=== PATIENT | female | born 1975 | race Caucasian/White ===

== ENCOUNTER 2018-02-27 09:04 | Outpatient (CLI) | payer BC ==
--- NOTE | 2018-02-27 10:23 | RAD ---
FOUR VIEWS LUMBAR SPINE: INDICATION: Lumbar spine pain with radiculopathy. COMPARISON: Prior exam dated 04/07/17. FINDINGS: There are 5 lumbar-type vertebrae. Spinal alignment is preserved. Vertebral body heights are within normal limits. There is mild left disk space height at L5-S1 which is stable. No abnormal translat ional motion is evident. IMPRESSION: 1. Stable mild spondylosis of the lumbar spine mainly at L5-S1. 2. No abnormal translational motion demonstrated. POS: CORDELIA
--- NOTE | 2018-02-27 12:16 | MRI ---
MRI LUMBAR SPINE: Date: 02/27/18 Multiplanar, multisequential imaging of lumbar spine obtained. INDICATION: Lumbar radiculopathy. Lumbar pain with radiation to right lower extremity. COMPARISON: MRI lumbar spine dated 04/07/17. That exam revealed a paracentral disc protrusion at L5-S1. FINDINGS: Lumbar vertebra maintain height and alignment. Degenerative disc and end plate signal change seen at L5-S1. There is mild loss of disc height and degenerative end plate changes, which are similar to the prior study of 2017. At L5-S1, there continues to be a disc protrusion paracentrally and to the left flattening anterior t hecal sac on the left and displacing the traversing left S1 nerve root. Disc protrusion does extend i nto the left foramina and also projects laterally to the left with disc osteophyte complex. This appe ars to contact the exiting left L5 nerve root. This protrusion may be minimally more prominent today with AP dimension measured at 8-9 mm today, whereas it previously measured 6-7 mm in the axial plane. The other levels remain unremarkable with no other significant disc bulge or disc protrusion seen in the lumbar spine. IMPRESSION: Disc protrusion paracentrally to the left and laterally to the left at L5-S1 again noted as described above. POS: CORDELIA
== END 2018-02-27 09:05 | disposition home or self-care (01) ==
LOC: TBSIIMAG 09:04
PROVIDERS: ATTEND Surgery
DX: M47.27 Other spondylosis with radiculopathy, lumbosacral region (principal)
CPT/HCPCS: 72100; 72148

== ENCOUNTER 2018-06-30 06:00 | Day surgery (SDC) | payer BC ==
[2018-06-29 10:40] VITALS: BMI 22.3
[2018-06-30] MEDS ORDERED: Thrombin 5000 UNITS/5 ML VIAL ONE (06:26)
[2018-06-30] MEDS ORDERED: Sodium Chloride 0.9% 10 ML ONE (06:26)
[2018-06-30] MEDS ORDERED: Bacitracin Zinc Ointment 30 gm TUBE ONE (06:26)
[2018-06-30] MEDS ORDERED: Midazolam HCl 2 mg/2 ml Vial ONE (06:58)
[2018-06-30] MEDS ORDERED: Scopolamine 1.5 mg/72 hour Patch ONE (07:04)
[2018-06-30] MEDS ORDERED: CEFAZOLIN 2 GM/50 ML BAG ONE (07:08)
[2018-06-30 07:14] LABS: #Basophils 0.1 thou/uL (0.0-0.2); #Eosinphils 0.1 thou/uL (0.0-0.7); #Lymphocytes 1.5 thou/uL (1.20-3.40); #Monocytes 0.4 thou/uL (0.11-0.59); #Neutrophils 3.1 thou/uL (1.40-6.50); %Basophils 1.4 % (0.0-1.0); %Lymphocytes 29.8 % (21.0-51.0); %Neutrophils 60.8 % (42.0-75.0); Hemoglobin 13.2 g/dL (12.0-16.0); Mean Corpuscular HGB CONC 32.2 g/dL (32.0-36.0); Mean Corpuscular Volume 90.2 fL (78.0-98.0); Mean Platelet Volume 8.2 fL (7.4-10.4); Platelet Count 194 thou/uL (130-400); RBC Distribution Width 11.6 % (11.5-14.5); Red Blood Cell (RBC) Count 4.53 mill/uL (4.20-5.40)
[2018-06-30 07:21] LABS: PTT 28.1 SEC (22.9-36.1)
[2018-06-30 07:33] LABS: Anion Gap 11 mmol/L (10-20); BUN (Urea Nitrogen) 12 mg/dL (7.0-18.7); Calc. Creatinine Clearance 90 mL/min (70-130); Calcium 9.1 mg/dL (7.8-10.44); Carbon Dioxide 24 mmol/L (22-29); Chloride 109 mmol/L (98-107); Estimated GFR-MDRD 85; Glucose 92 mg/dL (70-105); Potassium 3.7 mmol/L (3.5-5.1); Sodium 140 mmol/L (136-145)
[2018-06-30] MEDS ORDERED: Fentanyl 100 MCG/2 ML VIAL ONE ×2 (07:33→09:56)
[2018-06-30] MEDS ORDERED: Promethazine HCl 25 MG/ML VIAL SLOW IVP PRN (08:45)
[2018-06-30] MEDS ORDERED: Promethazine HCl 25 MG/ML VIAL IM PRN ×2 (08:45→09:33)
[2018-06-30] MEDS ORDERED: Morphine Sulfate 2 MG/ML SYRINGE SLOW IVP PRN (08:45)
[2018-06-30] MEDS ORDERED: PACU-Morphine 4MG/ML VIAL SLOW IVP PRN (08:45)
[2018-06-30] MEDS ORDERED: HYDROmorphone 2 MG/ML VIAL SLOW IVP PRN (08:45)
[2018-06-30] MEDS ORDERED: Promethazine HCl 25 MG/ML VIAL ONE (08:57)
[2018-06-30] MEDS ORDERED: traMADol HCl 50 MG TAB PO PRN (09:33)
[2018-06-30] MEDS ORDERED: Fleet Enema 133 ML BOT PR PRN (09:33)
[2018-06-30] MEDS ORDERED: Mag-Al 1200 mg/1200 mg/30 ML UDCUP PO PRN (09:33)
[2018-06-30] MEDS ORDERED: HYDROcodone/Acetaminophen 7.5/325 mg Tablet PO PRN (09:33)
[2018-06-30] MEDS ORDERED: Bisacodyl 10 MG SUPP PR PRN (09:33)
[2018-06-30] MEDS ORDERED: Milk Of Magnesia 30 ML UDCUP PO PRN (09:33)
[2018-06-30] MEDS ORDERED: Ketorolac Tromethamine 30 MG/ML VIAL ONE (10:18)
[2018-06-30] MEDS: Sodium Chloride 0.9% 1,000 ML IV SCH ×2 (12:05→19:03)
--- NOTE | 2018-06-30 12:40 | OP ---
DATE OF PROCEDURE: 06/30/2018 OR: OR #[id number] WOUND TYPE: Type 1 wound. SURGEON: Edu Dan M.D. TRAFFIC OPERATOR: Michael Alvarenga PA-C. PREPROCEDURE DIAGNOSES: Left S1 radiculopathy with left L5-S1 disk extrusion with low back and left leg pain. POSTPROCEDURE DIAGNOSES: Left S1 radiculopathy with left L5-S1 disk extrusion with low back and left leg pain. PROCEDURE: 1. Left L5-S1 hemilaminotomy, foraminotomy, and diskectomy. 2. Use of operative microscope for microdissection. DESCRIPTION OF PROCEDURE: After informed consent was obtained from the patient, the patient brought to OR 11. Proper patient pause identification was carried out. She was placed in excellent endotrac heal anesthesia and positioned prone on the OR table. All appropriate points were padded. We then identified L5-S1 dorsal spines. A linear luis was made over this region. This area sterilel y cleansed, prepared, and draped. Proper patient pause identification was carried out. The wound wa s then opened with a combination of sharp, monopolar and blunt dissection, left L5-S1 hemilamina was exposed. Localization film confirmed our area of interest. We then performed with the microscope an d utilizing micro dissection technique, left L5-S1 hemilaminotomy, foraminotomy. We gently retracted the left S1 nerve root and diskectomy at the left L5-S1 segment was performed with excellent decompr ession of the traversing left S1 nerve root. Copious irrigation occurred throughout. There was no s luis miguel fluid leak. Hemostasis was maximized. The wound was then closed in anatomic layers following the sprinkling of vancomycin powder. The patient then emerged from anesthesia.
[2018-06-30] MEDS ORDERED: Ibuprofen 200 MG TAB PO PRN (12:54)
--- NOTE | 2018-06-30 13:00 | EKG ---
Test Reason : PREOP Blood Pressure : / mmHG Vent. Rate : 065 BPM Atrial Rate : 065 BPM P-R Int : 120 ms QRS Dur : 080 ms QT Int : 444 ms P-R-T Axes : 066 063 059 degrees QTc Int : 461 ms Normal sinus rhythm Normal ECG No previous ECGs available Confirmed by BLANCHE NY ([id number]) on 06/30/2018 1:00:13 PM Referred By: MILY Confirmed By:BLANCHE [place]
[2018-06-30] MEDS: Acetaminophen 325 MG TAB PO PRN ×3 (14:26→23:17)
[2018-06-30] MEDS: CEFAZOLIN 2 GM/50 ML BAG IVPB SCH ×2 (16:00→23:35)
[2018-06-30] MEDS ORDERED: PROPOFOL 200 MG/20 ML VIAL ONE (17:43)
[2018-06-30] MEDS ORDERED: PHENYLEPHRINE-NS 100 MCG/ML 10 ML SYRINGE ONE (17:43)
[2018-06-30] MEDS ORDERED: Lidocaine 1% PF 5 ML VIAL ONE (17:43)
[2018-06-30] MEDS ORDERED: Glycopyrrolate 0.2 MG/ML 5 ML SYRINGE ONE (17:43)
[2018-07-01] MEDS: Acetaminophen 325 MG TAB PO PRN ×2 (03:50→08:00)
[2018-07-01 07:54] VITALS: BP 107/57; TEMP 98.2
--- NOTE | 2018-07-01 09:33 | PRG ---
DATE OF SERVICE: 07/01/2018 She is postoperative day 1 from left L5-S1 discectomy. She is doing well with resolution in her left leg pain. She has had no cardiac issues. We will dismiss her. Neurologically is intact.
[2018-07-01] MEDS: Sodium Chloride 0.9% 1,000 ML IV SCH (09:50)
--- NOTE | 2018-07-01 10:15 | EKG ---
Test Reason : Blood Pressure : / mmHG Vent. Rate : 060 BPM Atrial Rate : 060 BPM P-R Int : 122 ms QRS Dur : 072 ms QT Int : 462 ms P-R-T Axes : 071 057 059 degrees QTc Int : 462 ms Normal sinus rhythm Nonspecific ST and T wave abnormality Prolonged QT Abnormal ECG Confirmed by BLANCHE NY ([id number]) on 07/01/2018 10:14:30 AM Referred By: SHABANA BURGOS PA-C Confirmed By:BLANCHE [place]
--- NOTE | 2018-07-01 14:44 | PDOC.PN ---
- Subjective Encounter Start Date: 07/01/18 Encounter Start Time: 09:50 follow up for consult for medical management of hypothyroidism, prolonged QT, post hemilam Pt with little to no post op pain, no F/C, no n/V/D/C, no CP or sOB All systesm reviewd and neg x as above - Objective MAR Reviewed: Yes Vital Signs & Weight: Vital Signs (12 hours) Temp Pulse Resp BP BP Pulse Ox 07/01/18 07:06 98.2 F 57 L 16 107/57 L 100 07/01/18 03:50 98.3 F 54 L 16 101/55 L 100 Weight Weight 130 lb I&O: 06/30/18 07/01/18 07/02/18 06:59 06:59 06:59 Intake Total 3222 250 Output Total 3285 Balance -63 250 Result Diagrams: 06/30/18 07:03 06/30/18 07:03 Phys Exam - Physical Examination Constitutional: NAD HEENT: PERRLA, moist MMs, sclera anicteric, oral pharynx no lesions Neck: no nodes, no JVD, supple, full ROM Respiratory: no wheezing, no rales, no rhonchi, clear to auscultation bilateral Cardiovascular: RRR, no significant murmur, no rub Gastrointestinal: soft, non-tender, no distention, positive bowel sounds Musculoskeletal: no edema, pulses present Neurological: non-focal, normal sensation, moves all 4 limbs Lymphatic: no nodes Psychiatric: normal affect, A&O x 3 Skin: no rash, normal turgor, cap refill <2 seconds Dx/Plan (1) Hypothyroidism Code(s): E03.9 - HYPOTHYROIDISM, UNSPECIFIED Status: Chronic (2) Hx of migraines Code(s): Z86.69 - PERSONAL HISTORY OF DIS OF THE NERVOUS SYS AND SENSE ORGANS Status: Chronic (3) H/O prolonged Q-T interval on ECG Code(s): Z87.898 - PERSONAL HISTORY OF OTHER SPECIFIED CONDITIONS Status: Chronic (4) Chronic anemia Code(s): D64.9 - ANEMIA, UNSPECIFIED Status: Chronic - Plan cont current plan of care, incentive spirometry, out of bed/ambulate * . home today
--- NOTE | 2018-07-01 15:21 | CON ---
DATE OF CONSULTATION: 06/30/2018 TIME OF SERVICE: 1600. REASON FOR CONSULTATION: Medical management post-spinal surgery. HISTORY OF PRESENT ILLNESS: Ms. Craig is a 42-year-old white female with, 1. History of hypothyroidism, currently resolved, off medications. 2. Prolonged QT syndrome. 3. Chronic anemia. 4. Migraines, who is admitted postop day [address] Dan and his team after L5-S1 hemilaminectomy an d foraminotomy and diskectomy with operative microscope for microdissection for a left S1 radiculopat hy with L5-S1 disk extrusion and low back and left leg pain. Intraoperatively, there were no noted complications. The patient was seen in Recovery prior to transfer to the floor. She had no known intraoperative complications. History has been reviewed. reviewed. PAST MEDICAL HISTORY: 1. Hypothyroidism. 2. Migraines. 3. Prolonged QT syndrome. 4. Hypothyroidism, on medications at one time, but currently off medications and has resolved. PAST SURGICAL HISTORY: 1. Back surgeries as above. 2. Hysterectomy. HOME MEDICATIONS: Have been reviewed. Please see the nurse's intake sheet. ALLERGIES: NKDA. FAMILY HISTORY: Significant for hypertension, stroke, and diabetes. SOCIAL HISTORY: Negative for clotting or bleeding disorders. No immune dysfunction. REVIEW OF SYSTEMS: All systems were reviewed. The patient was very somnolent and difficult to answe r. She voiced no complaints. PHYSICAL EXAMINATION: VITAL SIGNS: Temperature 97.5, pulse 59, blood pressure 164/77, respiratory rate 16, satting 100% on room air. GENERAL: She is awake. She is alert and oriented x3, well-developed, well-nourished, white female, appears in no acute distress. HEENT: Normocephalic, atraumatic. Pupils equal, round, react to light bilaterally, mucous membranes are moist. She has no visible lesion, no thrush. NECK: Supple. No lymphadenopathy, JVD, or thyromegaly. LUNGS: Clear. No wheeze, no rales, no rhonchi. Good air movement. CARDIOVASCULAR: She has normal S1, S2. No S3, S4. Slightly bradycardic. No audible murmurs. ABDOMEN: Soft, nontender, nondistended, no mass or organomegaly. EXTREMITIES: No cyanosis or clubbing. No edema. NEUROLOGIC: Not tested. SKIN: Warm, moist, and well perfused. There are no rashes or lesions. Operative site was not exami emelyn as his postop dressing is in place. MUSCULOSKELETAL: Normal to inspection. Large joints appear normal. There is no evidence of inflamm ation or palpable effusions. LABORATORY DATA: Preop CBC showed a white count of 5.0, hemoglobin 13.2, hematocrit of 40.9, platele t count is 194,000. INR is 1.0. Basic metabolic profile within normal limits with potassium of 3.7, sodium 140, bicarbonate of 24, BUN 12, creatinine 0.74, calcium 9.1, glucose of 92. ASSESSMENT AND PLAN: 1. Hypothyroidism, off medications. 2. Migraines. 3. S1 disk extrusion with low back pain, status post hemilaminectomy. 4. Prolonged QT syndrome. 5. Chronic anemia. We will continue patient's home medications and follow along. Blood pressure is under good control a t this point. We will monitor her on the telemetry sandy. We will follow up on in the morning. Expe ct discharge within 24 hours.
== END 2018-07-01 10:33 | disposition home or self-care (01) ==
LOC: SDC 06:00 → 2SW 09:35 → SDC 07-01 10:33
PROVIDERS: ATTEND Surgery
PROC: 0SB20ZZ Excision of Lumbar Vertebral Disc, Open Approach (ICD-10-PCS; principal; 2018-06-30)
PROC: 01NB0ZZ Release Lumbar Nerve, Open Approach (ICD-10-PCS; principal; 2018-06-30)
DX: M51.17 Intervertebral disc disorders with radiculopathy, lumbosacral region (principal); D64.9 Anemia, unspecified; G43.909 Migraine, unspecified, not intractable, without status migrainosus; I45.81 Long QT syndrome; Z88.8 Allergy status to other drugs, medicaments and biological substances
CPT/HCPCS: 36415; 76001; 80048; 85025; 85610; 85730; 93005; 93010; 96361; 96365; 96366; 96374; 96375; J0131; J1885; J2001; J2250; J2550; J2704; J3010; J3370; J3490

== ENCOUNTER 2019-07-21 08:12 | Outpatient (CLI) | payer BC ==
--- NOTE | 2019-07-21 10:02 | MRI ---
Lumbar spine MRI with and without contrast: 07/21/2019 HISTORY: Left lower extremity radiculopathy, left leg pain, back pain TECHNIQUE: Multiplanar multisequence MR imaging of the lumbar spine with and without contrast Comparison made to noncontrast enhanced MRI lumbar spine 02/27/2018 FINDINGS: There is increased STIR signal within the inferior aspect of the L5 vertebral body in the s uperior aspect of the S1 vertebral body, progressed since the 2017 and 2018 prior MRI examinations. There is mild increased STIR and T2 signal within the L5-S1 disc, a new finding when compared to the prior imaging. There is mild increased T2 signal intensity ventral to the inferior aspect of L5, the superior aspect of L1, the L5-S1 disc space, and the sacrum, progressed when compared to prior i maging. No additional areas of abnormal signal intensity identified within the bone marrow on STIR imaging. On the basis of 5 lumbar type vertebral bodies, the conus medullaris terminates at T12-L1 level. T12-L1: Intervertebral disc height and signal intensity is within normal limits. No significant centr al canal or neural foraminal stenosis. L1-2: Intervertebral disc height and signal intensity is within normal limits with no significant beatrice tral canal or neural foraminal stenosis. L2-3: Intervertebral disc height and signal intensity is within normal limits. No significant central canal or neural foraminal stenosis L3-4: Intervertebral disc height and signal intensity within normal limits with no significant centra l canal or neural foraminal stenosis. L4-5: Intervertebral disc height and signal intensity within normal limits. Mild bilateral facet hype rtrophy. No significant central canal or neural foraminal stenosis. L5-S1: There is disc space narrowing and disc desiccation. There is probable erosion of the inferior endplate of L5 and superior endplate of S1 on the precontrast T1-weighted imaging. There is a small central disc protrusion with an associated annular tear. There is mild bilateral facet hypertrophy. T here is mild bilateral neural foraminal stenosis and no significant central canal stenosis. Postcontrast imaging demonstrates a thin rind of enhancement involving the anterior soft tissues ante rior to the inferior portion of L5, the L5-S1 disc, and the S1 vertebral body. There is mild enhancement of the S1 nerve root bilaterally, right greater than left. In addition, there is mild enh ancement of the intervertebral disc centrally at L5-S1 as well as enhancement involving the inferior aspect of L5 and superior aspect of the S1 vertebral body. There is left-sided hemilaminectomy change at the L5 the level. Image retroperitoneal structures demonstrate no acute findings. IMPRESSION: Abnormal signal intensity at the L5-S1 level. This may be on the basis of prominent progr ession of degenerative change with associated enhancement and fluid. However, this could be related to discitis/osteomyelitis. Clinical correlation is essential. A CT examination may be beneficial to e valuate the integrity of the L5 and S1 endplates. Michael Alvarenga made aware at 9:58 AM 07/21/2019
[2019-07-21] MEDS ORDERED: Magnevist 469MG/ML 20 ML VIAL ONE (11:50)
== END 2019-07-21 08:13 | disposition home or self-care (01) ==
LOC: TBSIIMAG 08:12
PROVIDERS: ATTEND Physician Assistant Surgical
DX: M54.5 Low back pain (principal); R29.898 Other symptoms and signs involving the musculoskeletal system; M47.816 Spondylosis without myelopathy or radiculopathy, lumbar region
CPT/HCPCS: 72158; A9579

== ENCOUNTER 2019-08-09 10:05 | Outpatient (CLI) | payer BC ==
--- NOTE | 2019-08-09 10:36 | CT ---
CT LUMBAR SPINE WITHOUT CONTRAST: INDICATIONS: History of back surgery one year ago with continued back pain with left-sided radiculopathy COMPARISON: MR the lumbar spine with and without contrast dated July 21, 2019 and MR of the lumbar spine date d February 27, 2018 and April 07, 2017. TECHNIQUE: Multiple CT images were obtained of the lumbar spine without contrast. Axial, coronal, and sagittal r eformatted images were constructed from the raw data. FINDINGS: Visualized retroperitoneal and paravertebral soft tissues: Within normal limits Spinal alignment: Within normal limits. Spinal instrumentation or postsurgical change: There is postoperative change of a left hemilaminectom y at L5-S1. There is postoperative change of a right hemilaminotomy at L4-5. At L5-S1, there is severe loss of the normal disc space height. There is endplate sclerosis involving inferior aspect of L5 and the superior aspect of S1. There is a small focus of intradiscal gas seen along the anterior aspect of the L5-S1 intervertebral disc level. There is hypertrophic osteophy te formation seen surrounding the L5-S1 level. No endplate destructive changes are grossly evident. Small smooth suspected Schmorl's node is seen involving the superior aspect of S1 on image 34 of the sagittal series. There is an asymmetric to the left broad-based disc osteophyte complex at this level. The broad-based disc osteophyte complex with loss of disc space height induces mild to moderat e left neural foraminal narrowing. There is mild right neural foraminal narrowing at this level. At L4-5, there is a broad-based bulge with facet hypertrophy but no appreciable central canal or neur al foraminal narrowing. At L3-4, there is no appreciable central canal or neuroforaminal narrowing. At L2-3, there is no appreciable central canal or neuroforaminal narrowing. At L1-L2, there is no appreciable central canal or neuroforaminal narrowing. At T12-L1, there is no appreciable central canal or neuroforaminal narrowing. IMPRESSION: 1. The signal abnormality and abnormal enhancement seen on the MR of the lumbar spine dated July 21, 2019 was likely related to prominent Modic endplate degenerative changes. There is subchondral sclerosis with maintenance of the subchondral bone plate of the L5-S1 vertebral levels most suspiciou s for disc degenerative disease. Vacuum disc phenomenon within the anterior aspect of L5-S1 is likely indicative of some disc instability at this level. 2. Mild to moderate left neural foraminal narrowing at L5-S1 due to an asymmetric to the left disc os teophyte complex and loss of disc space height.
== END 2019-08-09 10:06 | disposition home or self-care (01) ==
LOC: TBSIIMAG 10:05
PROVIDERS: ATTEND Surgery
DX: M54.5 Low back pain (principal); M48.07 Spinal stenosis, lumbosacral region; M25.78 Osteophyte, vertebrae; R29.890 Loss of height; R93.89 Abnormal findings on diagnostic imaging of other specified body structures; Z98.890 Other specified postprocedural states
CPT/HCPCS: 72131